=== PATIENT | male | born 1960 | race Caucasian/White ===

== ENCOUNTER → 2024-04-19 08:18 | Outpatient (CLI) | payer OTHER, SELFPAY ==
--- NOTE | 2024-04-19 08:35 | EKG_ITS ---
[address] [address] Test Date: 2024-04-19 Pat Name: Mick Perkins Department: [facility] Room: Gender: Male Publication Designer: GIL : [id number] Requested By: Order Number: [id number] Reading MD: Darren Weldon Measurements Intervals [place] Rate: 57 P: 32 NV: 158 QRS: 15 QRSD: 82 T: 19 QT: 428 QTc: 416 Interpretive Statements Sinus bradycardia Electronically Signed On 04-23-2024 8:59:55 PDT by Darren Weldon
== END ==
PROVIDERS: Referring Provider Podiatrist; Visit Provider Podiatrist
DX: Z01.818 Encounter for other preprocedural examination (principal)
CPT/HCPCS: 93005